=== PATIENT | male | born 1940 | race Caucasian/White ===

== ENCOUNTER 2023-11-03 13:53 | Outpatient (CLI) | payer MEDICARE | END 2023-11-03 23:59 | disposition home or self-care (01) | LOC: RAD 13:53 | PROVIDERS: ATTEND Student in an Organized Health Care Education/Training Program | DX: R90.82 White matter disease, unspecified (principal); R51.9 Headache, unspecified; G45.9 Transient cerebral ischemic attack, unspecified | CPT/HCPCS: 70450 ==

== ENCOUNTER 2024-05-11 09:07 | Day surgery (SDC) | payer MEDICARE ==
[2024-05-11] VITALS (8 sets, daily range): BP systolic 133–155; BP diastolic 60–73; PULSE 57–67; RESP 12–17; O2SAT 97–100
[~2024-05-11] VITALS: Ht 175.3 cm; Wt 89.5 kg
[~2024-05-11 09:07] MED LIST: FLO0.4C; INSU100I31; INSU100I38; LOSA1TAB36 PO; TIMO5DRO15; simethicone 40mg/0.6ml oral drops 30ml ONE
[2024-05-11] MEDS ORDERED: LIDOcaine 2% Viscous 15ml cup ONE (09:35)
[2024-05-11] MEDS ORDERED: glucagon, human recombinant 1mg kit ONE (09:35)
[2024-05-11] MEDS ORDERED: diphenhydrAMINE 50 mg/ml inj ONE (09:35)
[2024-05-11] MEDS ORDERED: iohexol 300mg/ml 100ml inj. ONE (09:35)
[2024-05-11] MEDS ORDERED: levoFLOXACIN-Levaquin 500mg/D5 100 ML IV ONE (09:35)
[2024-05-11] MEDS ORDERED: fentaNYL/PF 50MCG/1 ML 2ML syringe ONE (10:57)
[2024-05-11] MEDS ORDERED: MIDAZolam 1 MG/ML 5ML VIAL ONE (10:57)
== END 2024-05-11 13:05 | disposition home or self-care (01) ==
LOC: GI LAB 09:07
PROVIDERS: ATTEND Internal Medicine Gastroenterology
DX: C25.0 Malignant neoplasm of head of pancreas (principal); K83.1 Obstruction of bile duct
CPT/HCPCS: 43276; 74328; 99152; A4620; C1769; C1889; C2625; J1610; J1956; J2250; J3010; J7030; Q9967; Z7512; Z7610; G0500; J1200

== ENCOUNTER 2024-07-02 11:26 | Day surgery (SDC) | payer MEDICARE ==
[2024-07-02] VITALS (7 sets, daily range): BP systolic 107–150; BP diastolic 48–61; PULSE 62–78; RESP 11–17; O2SAT 92–98
[~2024-07-02] VITALS: Ht 175.3 cm; Wt 88.1 kg
[~2024-07-02 11:26] MED LIST changes: -simethicone 40mg/0.6ml oral drops 30ml ONE
[2024-07-02] MEDS ORDERED: iohexol 300mg/ml 100ml inj. ONE (11:43)
[2024-07-02] MEDS ORDERED: levoFLOXACIN-Levaquin 500mg/D5 100 ML IV ONE (11:43)
[2024-07-02] MEDS ORDERED: glucagon, human recombinant 1mg kit ONE (11:43)
[2024-07-02] MEDS ORDERED: proCHLORperazine 10 MG/2 ml inj IV PRN (12:00)
[2024-07-02] MEDS ORDERED: ondansetron/PF 4mg/2ml inj IV PRN (12:00)
[2024-07-02] MEDS ORDERED: meperidine/PF 25mg/ml syringe IV PRN ×3 (12:00)
[2024-07-02] MEDS ORDERED: labetalol 20mg/4ml (5mg/ml) syringe IV PRN (12:00)
[2024-07-02] MEDS ORDERED: ringers solution, lacted 1,000 ML IV SCH (12:00)
[2024-07-02] MEDS ORDERED: morphine 4 MG/ML inj SYRINge IV PRN (12:00)
[2024-07-02] MEDS ORDERED: morphine 2 MG/ML inj. syringe IV PRN (12:00)
[2024-07-02] MEDS ORDERED: hydrALAZINE 20mg/ml inj. IV PRN (12:00)
[2024-07-02] MEDS ORDERED: simethicone 40mg/0.6ml oral drops 30ml ONE (12:14)
[2024-07-02] MEDS ORDERED: fentaNYL/PF 50MCG/1 ML 2ML syringe ONE (12:15)
[2024-07-02] MEDS ORDERED: midazolam 1 mg/ML 2ml injection ONE (12:15)
[2024-07-02] MEDS ORDERED: propofol inj 20 ML IV ONE ×3 (12:34)
[2024-07-02] MEDS ORDERED: LIDOcaine 2% (20mg/ml) 5ml vial ONE (12:35)
[2024-07-02] MEDS: acetaminophen 1,000mg/100ml IV 100 ML IV ONE (13:00)
== END 2024-07-02 14:10 | disposition home or self-care (01) ==
LOC: GI LAB 11:26
PROVIDERS: ATTEND Internal Medicine Gastroenterology
DX: C25.0 Malignant neoplasm of head of pancreas (principal); E11.9 Type 2 diabetes mellitus without complications; Z86.73 Personal history of transient ischemic attack (TIA), and cerebral infarction without residual deficits; Z87.891 Personal history of nicotine dependence; Z79.4 Long term (current) use of insulin; Z79.84 Long term (current) use of oral hypoglycemic drugs; Z79.899 Other long term (current) drug therapy; Z98.890 Other specified postprocedural states
CPT/HCPCS: 43276; A4618; C1889; C2625; J0131; J0780; J1956; J2001; J2175; J2250; J2405; J2704; J3010; J7030; J7120; Q9967; Z7506; Z7512; Z7610; J0360; J1610; J2270; J3490

== ENCOUNTER 2024-12-11 13:18 | Outpatient (CLI) | payer MEDICARE | END 2024-12-11 23:59 | disposition home or self-care (01) | LOC: MRI02 13:18 | PROVIDERS: ATTEND Physician Assistant Surgical | DX: M16.12 Unilateral primary osteoarthritis, left hip (principal); M25.552 Pain in left hip; M25.452 Effusion, left hip; R60.0 Localized edema; N43.3 Hydrocele, unspecified; M87.852 Other osteonecrosis, left femur; E66.9 Obesity, unspecified; M21.852 Other specified acquired deformities of left thigh; M47.816 Spondylosis without myelopathy or radiculopathy, lumbar region | CPT/HCPCS: 73721 ==